=== PATIENT | male | born 1985 | race Caucasian/White ===

== ENCOUNTER 2017-03-29 19:41 | Emergency (ER) | payer MEDICAID, MEDICARE ==
[~2017-03-29] VITALS: Ht 177.8 cm; Wt 109.5 kg
[2017-03-29] MEDS ORDERED: LIDOCAINE 1%, 20ML ONE (20:58)
[2017-03-29] MEDS ORDERED: LIDOCAINE 1%, 20ML SQ ONE (21:00)
[2017-03-29 22:25] VITALS: BP 117/70
== END 2017-03-29 22:27 | disposition home or self-care (01) ==
LOC: ED 22:22
DX: L02.215 Cutaneous abscess of perineum (principal); Z87.891 Personal history of nicotine dependence
CPT/HCPCS: 10060; 46050; 99283; 99284

== ENCOUNTER 2021-03-11 14:23 | Emergency (ER) | payer MEDICARE, MEDICAID ==
[~2021-03-11] VITALS: Ht 177.8 cm; Wt 127.3 kg
--- NOTE | 2021-03-11 15:47 | NUR ---
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
--- NOTE | 2021-03-11 16:01 | NUR ---
ASSUMED CARE OF PT. HE REPORTS HX OF PERIPHERAL NEUROPATHY AND ANHIDROSIS, HE REPORTS CRAMP IN R ARM LAST NIGHT AND SOME TINGLING WHICH IS WHAT BROUGHT HIM HERE TODAY. VSS, PT IN GOWN, NADN. CALL LIGHT W/IN REACH.
[2021-03-11 17:08] LABS: BASOPHILS % (AUTO) 1 % (0-1); EOSINOPHILS % (AUTO) 2 % (1-7); LYMPHOCYTES % (AUTO) 21 % (22-44); MEAN CORPUSCULAR HEMOGLOBIN 30.2 pg (27.5-34.5); MEAN CORPUSCULAR HGB CONC 34.5 g/dL (33.2-36.2); MONOCYTES % (AUTO) 10 % (2-9); NEUTROPHILS % (AUTO) 66 % (42-75); PLATELET COUNT 347 x10^3/uL (130-400); RED BLOOD COUNT 5.56 x10^6/uL (4.38-5.82); RED CELL DISTRIBUTION WIDTH 13.2 % (9.4-14.8)
[2021-03-11 17:13] LABS: ALANINE AMINOTRANSFERASE 47 U/L (12-78); ALBUMIN 3.9 g/dL (3.4-5.0); ANION GAP 7 mmol/L (5-15); CALCIUM 9.7 mg/dL (8.5-10.1); CHLORIDE 107 mmol/L (98-107)
[2021-03-11 17:16] LABS: ALKALINE PHOSPHATASE 69 U/L (45-117); BILIRUBIN,TOTAL 0.4 mg/dL (0.2-1.0); CREATININE 0.81 mg/dL (0.7-1.3); TOTAL PROTEIN 8.1 g/dL (6.4-8.2)
[2021-03-11 17:22] VITALS: BP 114/74
--- NOTE | 2021-03-11 17:22 | NUR ---
PT RESTING IN [facility], NO NEEDS. VSS BEDSIDE
--- NOTE | 2021-03-11 17:34 | NUR ---
Patient/Caregiver given discharge instructions and they have confirmed that they understand the instructions. Patient ambulatory with steady gait.
== END 2021-03-11 17:50 | disposition home or self-care (01) ==
LOC: ED 17:40
DX: M79.18 Myalgia, other site (principal)
CPT/HCPCS: 36415; 80053; 85025; 99283